=== PATIENT | female | born 1950 | race Caucasian/White ===

== ENCOUNTER → 2018-11-07 | Outpatient (CLI) | payer MEDICARE, OTHER | LOC: M.CT 09:47 | DX: K44.9 Diaphragmatic hernia without obstruction or gangrene (principal); K76.0 Fatty (change of) liver, not elsewhere classified; I70.0 Atherosclerosis of aorta; N28.9 Disorder of kidney and ureter, unspecified; J98.11 Atelectasis; M51.34 Other intervertebral disc degeneration, thoracic region; Z90.710 Acquired absence of both cervix and uterus; Z85.3 Personal history of malignant neoplasm of breast ==

== ENCOUNTER → 2019-06-02 | Outpatient (CLI) | payer MEDICARE, OTHER ==
--- NOTE | 2019-06-02 10:03 | 2DMMODE ---
[place] [address] 2 D/M-MODE ECHOCARDIOGRAM Name: DANIEL STOVER Room: [facility]#: [id number] Admission: 06/02/19 Attend Phys: Aidee Whitt Discharge: Date of : 46 Date of Service: 06/02/19 1003 Report #: [id number] THIS REPORT FOR: //name// APPROVED REPORT Study performed: 06/02/2019 08:53:56 EXAM: Comprehensive 2D, Doppler, and color-flow Echocardiogram Patient Location: Out-Patient BSA: 2.24 HR: 77 bpm BP: 145/65 mmHg Other Information Study Quality: Fair Indications Irregular Heart Rate 2D Dimensions IVSd: 10.22 (7-11mm) LVOT Diam: 19.96 (18-24mm) LVDd: 43.90 mm PWd: 10.83 (7-11mm) Ascending Ao: 29.40 (22-36mm) LVDs: 29.46 (25-40mm) Aortic Root: 27.12 mm Volumes Left Atrial Volume (Systole) LA ESV Index: 13.90 mL/m2 Aortic Valve AoV Peak Hunter.: 1.20 m/s AO Peak Gr.: 5.80 mmHg LVOT Max P.98 mmHg AO Mean Gr.: 3.29 mmHg LVOT Mean P.73 mmHg LVOT Max V: 1.22 m/s AO V2 VTI: 26.32 cm LVOT Mean V: 0.75 m/s ANALILIA (VTI): 3.22 cm2 LVOT V1 VTI: 27.04 cm Mitral Valve E/A Ratio: 0.98 MV Decel. Time: 238.27 ms MV E Max Hunter.: 0.82 m/s MV PHT: 69.10 ms MVA (PHT): 3.18 cm2 [place] [address] 2 D/M-MODE ECHOCARDIOGRAM Name: CKDANIEL HERNANDEZ Room: [facility]#: [id number] Admission: 06/02/19 Attend Phys: Aidee Whitt Discharge: Date of : 46 Date of Service: 06/02/19 1003 Report #: [id number] TDI E/Lateral E': 7.45 E/Medial E': 9.11 Medial E' Hunter.: 0.09 m/s Lateral E' Hunter.: 0.11 m/s Pulmonary Valve PV Peak Hunter.: 0.96 m/s PV Peak Gr.: 3.71 mmHg Left Ventricle The left ventricle is normal size. There is normal LV segmental wall motion. There is normal left ventricular wall thickness. Left ventricular systolic function is normal. LVEF is 60-65%. Grade I - abnormal relaxation pattern. Right Ventricle The right ventricle is normal size. The right ventricular systolic function is normal. Atria The left atrium size is normal. The right atrium size is normal. Aortic Valve The aortic valve is normal in structure. No aortic regurgitation is present. There is no aortic valvular stenosis. Mitral Valve The mitral valve is normal in structure. Trace mitral regurgitation. No evidence of mitral valve stenosis. Tricuspid Valve The tricuspid valve is normal in structure. There is no tricuspid valve regurgitation noted. Pulmonic Valve The pulmonary valve is normal in structure. There is no pulmonic valvular regurgitation. Great Vessels The aortic root is normal in size. The inferior vena cava is not well visualized. Pericardium There is no peric[place] [address] 2 D/M-MODE ECHOCARDIOGRAM Name: [facility]ANI[facility] STOVER [id number] Admission: 06/02/19 Attend Phys: Aidee Whitt Discharge: Date of : 46 Date of Service: 06/02/19 1003 Report #: [id number] <Conclusion> The left ventricle is normal size. There is normal left ventricular wall thickness. Left ventricular systolic function is normal. LVEF is 60-65%. Grade I - abnormal relaxation pattern. There is normal LV segmental wall motion. Trace mitral regurgitation. <ELECTRONICALLY SIGNED> By: Randal Salcido MD, FACC 06/02/19 1003 1003 1003 Randal Salcido MD, FAC /INF
--- NOTE | 2019-06-04 16:09 | 24HR ---
[facility] [address] [place] [address] HOLTER MONITOR REPORT Name: CKDANIEL HERNANDEZ Room: [facility]#: [id number] Admission: 06/02/19 Attend Phys: Aidee Whitt Discharge: Date of : 46 Date of Service: 06/04/19 1137 Report #: [id number] THIS REPORT FOR: //name// [facility] Test Date: 2019-06-04 Test Time: 11:37:01 Pat Name: DANIEL STOVER Department: Room: Gender: F [employer] Worker: : [id number] Requested By: Babatunde Chun Order Number: [id number] Reading MD: Randal Salcido Interpretive Statements 24-hour Holter monitor tTe basic underlying rhythm is normal sinus. The mean heart rate was 81 beats per minute. The maximum heart rate was 135 beats per minute corresponding sinus tachycardia at 11:08 am. The minimum heart rate was 61 beats with corresponding with normal sinus rhythm at 10:45 AM. The patient exhibited tachycardia define his heart rate greater than 100 bpm 8% of the monitored time. The patient exhibited no significant bradycardia. There were frequent unifocal premature ventricular contractions noted. There were frequent ventricular couplets noted. There were frequent episodes of ventricular trigeminy noted. There were no episodes of significant sustained ventricular arrhythmia. There were rare premature atrial contractions. No significant episodes of sustained atrial arrhythmia noted. There were no significant pauses and rhythm. There was no evidence for underlying atrial fibrillation or flutter. No diary was submitted with this Holter monitor. Electronically Signed On 06-04-2019 16:09:31 [employer] by Randal Salcido [email or web address] <ELECTRONICALLY SIGNED> By: Randal Salcido MD, [facility] 06/04/19 1609 1137 1137 Randal Salcido MD, FACC /EPI
== END ==
LOC: M.CRD 05-25 12:57
DX: I49.9 Cardiac arrhythmia, unspecified (principal); I34.0 Nonrheumatic mitral (valve) insufficiency

== ENCOUNTER → 2020-03-09 | Outpatient (CLI) | payer MEDICARE, OTHER | LOC: M.RAD 14:30 | DX: M85.88 Other specified disorders of bone density and structure, other site (principal) ==